=== PATIENT | male | born 1970 | race Caucasian/White ===

== ENCOUNTER → 2017-06-09 | Outpatient (CLI) | payer OTHER ==
[~2017-06-09] VITALS: Ht 182.9 cm; Wt 118.9 kg
[~2017-06-09] MED LIST: ACETAMINOPHEN325 M1 PO; ADULT ONE DAI200 MCG PO; CARISOPRODOL 3350 MG PO; COLACE100 MG PO; GLUCOPHAGE XR500 MG; GLUCOPHAGE500 MG PO; HYDROCODONE-AP1 EAC6 PO; IBUPROFEN200 M1 PO; LIDODERM 5%1 PATC1 TOP; LIPITOR20 MG; LIPITOR80 MG PO; LISINOPRIL2.5 MG; LISINOPRIL20 MG PO; LYRICA 75 MG CA75 MG PO; LYRICA150 MG PO; NEURONTIN 300300 M1 PO; OXYCODON-ACETA1 EAC1 PO; OXYCODONE-ACET1 EAC2 PO; OXYCODONE-ACET1 EACH PO; PERCOCET 7.5-31 EACH PO; PREDNISONE 20 M20 M1 PO; TIZANIDINE HCL 22 M1 PO; ULTRAM 50MG TAB50 MG PO
--- NOTE | ~2017-06-09 | HPC ---
[facility] [address] [place] [address] PAIN MANAGEMENT CONSULTATION Name: BUZZ BHATIA Room #: REG CLFran Padilla.#: [id number] Admission: 06/09/17 Attend Phys: Bert Sams MD Discharge: Date of : 70 Report #: [id number] THIS REPORT FOR: //name// CC: Nadine Sams DATE OF SERVICE: 06/09/2017 DATE OF SERVICE: 06/09/2017 CHIEF COMPLAINT: Bilateral shoulder pain, status post left shoulder surgery on 05/16/2017. HISTORY OF PRESENT ILLNESS: The patient is here today complaining of pain in his right shoulder. He has just recently had surgery on his left shoulder and is having postoperative pain there as well. He had medication provided for him for postoperative pain and he took 2-3 tablets a day and they are now gone. He is here today at his own request, having been a previous Pain Clinic patient in the past. He has pain in his right shoulder and thought that we might be able to help by providing him with an injection. I have also discussed with him following up with his orthopedic surgeon who will be seeing soon for followup visit for his left shoulder. He describes two pains. The first is right shoulder pain. The pain is associated with certain activities, which were identified in physical exam. He has localized pain posterior and anterior. Pain has been chronic. It has worsened over the last 6-7 years. He says he has had an MRI there, which shows some tendinopathy, I do not have those results to view. His left shoulder is painful. He had shoulder surgery apparently to treat a ruptures tendon. Recovery has gone well, he has been cautious with some passive range of motion exercises and wearing a bolster pillow for another week or two. Pain report today as a 6/10 in both locations. 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 MEDICATIONS: He is on gabapentin chronically 300 mg t.i.d., lisinopril 20 mg daily, Glucophage 500 mg twice a day and Lipitor. ALLERGIES: PENICILLIN. PHYSICAL EXAMINATION: Pleasant gentleman, blood pressure 134/95, heart rate 89, respirations 16. BMI is 35.6. He wears a left bolster pillow. I did not reexamine aggressively the left shoulder. He has been doing passive range of motion. Examination of the right shoulder reveals pain with abduction. He has good internal and external rotation. He has quite a bit of pain with medial [facility] [address] [place] [address] PAIN MANAGEMENT CONSULTATION Name: BUZZ BHATIA Room #: REG CLFran Causey.#: [id number] Admission: 06/09/17 Attend Phys: Bert Sams MD Discharge: Date of : 70 Report #: [id number] active motion. Otherwise, good strength throughout the shoulder girdle. IMPRESSION: 1. Bilateral shoulder arthropathy. Status post surgical repair of tendon, left shoulder. He is 6 weeks postop. 2. Right shoulder arthropathy with local pain without radiation. RECOMMENDATIONS: Cortisone injection may be of benefit. He can have it here or his orthopedic surgeon's office. Risks and benefits discussed. We discussed the new approaches with regenerative medicines, but these are expensive and out of pocket. He is not interested. He would like for me to provide his medication for him at this point given concerns about opioids. I have agreed to do so. I will provide him with 40 additional pills, 1-2 tablets b.i.d. for the next 10 days. Plan is to get him through surgery without chronic use of opioids. He has not been on opioids long-term in the past. Followup visit is planned in the pain clinic in a few weeks. May consider an injection of the right shoulder here if he does not get it in his orthopedic surgeon's office. By: [id number] Bert Sams MD /nt
[2017-06-09 10:16] VITALS: BP 134/95
== END | disposition home or self-care (01) ==
LOC: PAIN 09:59
DX: M12.811 Other specific arthropathies, not elsewhere classified, right shoulder (principal); M12.812 Other specific arthropathies, not elsewhere classified, left shoulder; G89.29 Other chronic pain; Z98.890 Other specified postprocedural states; Z88.0 Allergy status to penicillin; Z79.899 Other long term (current) drug therapy

== ENCOUNTER → 2018-03-12 | Outpatient (CLI) | payer OTHER ==
[~2018-03-12] VITALS: Ht 182.9 cm; Wt 116.5 kg
[~2018-03-12] MED LIST changes: +HUMIRA PSO40 MG/0.8 SUBQ
--- NOTE | ~2018-03-12 | HPC ---
[facility] [address] [place] [address] PAIN MANAGEMENT CONSULTATION Name: BUZZ BHATIA [facility] [id number] Admission: 03/12/18 Attend Phys: Bert Sams MD Discharge: Date of : 70 Report #: [id number] THIS REPORT FOR: //name// CC: Nadine Sams DATE OF SERVICE: 03/12/2018 Followup visit for osteoarthritis, right shoulder. The patient returns to pain clinic today and would like an injection. Unfortunately, we cannot do the injection today due to insurance requirements, he will need to have a preauthorization. It should be noted that the last injection provided on the left worked quite well. He is grateful for the excellent relief that provided him, had several weeks to several months of improvement. He describes his pain as a 6 with activity, 3 with rest. He uses good body mechanics to try and overcome the pain. He is on medication for pain including hydrocodone 10/325 taken as needed up to 3-4 times a day and is on gabapentin 300 mg 1 tablet in the morning and noon and 2 tablets in the evening. This combination seems to have been helpful. We discussed the fact that gabapentin is more for neuropathic pain than it is for arthropathy, but it does provide relief for his current condition. His only new medication at this time is Humira, which he started for psoriasis. PHYSICAL EXAMINATION: He has blood pressure 123/82, heart rate 73, respirations 16. Examination of the shoulder reveals significant pain with abduction, internal and external rotation of the right shoulder. Localized tenderness is noted there posteriorly and anteriorly. IMPRESSION: Osteoarthritis, right shoulder. RECOMMENDATION: Shoulder injection. We will perform this injection once we have received preauthorization. Plan to have him back in the pain clinic some time next week. By: [id number] Bert Sams MD /nt
[2018-03-12 11:34] VITALS: BP 123/82
== END ==
LOC: PAIN 06:12
DX: M19.011 Primary osteoarthritis, right shoulder (principal)

== ENCOUNTER → 2018-03-19 | Outpatient (CLI) | payer OTHER ==
[~2018-03-19] VITALS: Ht 182.9 cm; Wt 119.4 kg
--- NOTE | ~2018-03-19 | HPC ---
[facility] [place] [address] PAIN MANAGEMENT CONSULTATION Name: BUZZ BHATIA Room #: REG CL Padilla.#: [id number] Admission: 03/19/18 Attend Phys: Bert Sams MD Discharge: Date of : 70 Report #: [id number] THIS REPORT FOR: //name// CC: Nadine Sams DATE OF SERVICE: 03/19/2018 Followup visit for osteoarthritis, right shoulder. The patient is here today for shoulder injection. He was seen on 03/12/2018. We were unable to perform the injection on that day because of insurance preauthorization requirements. He was discharged. We have received that preauthorization. We will proceed today with the injection described on that visit of 03/12/2018. There have been no significant changes. IMPRESSION: Osteoarthritis, right shoulder. PROCEDURE: Shoulder injection with triamcinolone and bupivacaine. DESCRIPTION OF PROCEDURE: With the patient in seated position, skin was prepped with ChloraPrep. Skin was anesthetized with 1% lidocaine and a 27-gauge needle to identify entry. A posterior approach was used to enter the joint space below the spine of the scapula. In the subacromial joint space, I injected a total of 4 mL of 0.5% bupivacaine mixed with 40 mg of triamcinolone. He tolerated the procedure well, was discharged shortly thereafter. No medications ordered today. By: [id number] MD morales Montgomery
[2018-03-19 14:00] VITALS: BP 130/81
== END | disposition home or self-care (01) ==
LOC: PAIN 06:18
DX: M19.011 Primary osteoarthritis, right shoulder (principal); Z88.0 Allergy status to penicillin; Z79.899 Other long term (current) drug therapy

== ENCOUNTER → 2018-07-09 | Outpatient (CLI) | payer OTHER ==
[~2018-07-09] VITALS: Ht 182.9 cm; Wt 119.8 kg
--- NOTE | ~2018-07-09 | HPC ---
[facility] [place] [address] PAIN MANAGEMENT CONSULTATION Name: BUZZ BHATIA Room #: REG [facility] Digna.#: [id number] Admission: 07/09/18 Attend Phys: Bert Sams MD Discharge: Date of : 70 Report #: [id number] THIS REPORT FOR: //name// CC: Nadine De Santiago DO Bert Sams DATE OF SERVICE: 07/09/2018 Followup visit for osteoarthritis. The patient was last seen on 03/19/2018 when he received shoulder injection with 40 mg of triamcinolone. He had nearly 3 months of good pain relief. Pain has been returning over the last couple of weeks. Pain is all on the right shoulder. It is worse with abduction and internal and external rotation. He has no crepitus. PHYSICAL EXAMINATION: Demonstrates mild tenderness of the shoulder joint with good range of motion. I could not palpate a significant crepitus. There is no swelling, no effusion. VITAL SIGNS: Blood pressure 123/84, heart rate 75, respirations 16. He has some plaquing from his psoriasis noted on his elbows. All medications were reviewed and reconciled from the electronic medical record. He is currently on , metformin, lisinopril, gabapentin, Humira. IMPRESSION: Osteoarthritis, right shoulder. PROCEDURE: Right shoulder injection triamcinolone and bupivacaine. Skin was prepped with ChloraPrep. A 27-gauge needle was used to anesthetize the skin. A 25-gauge needle was advanced in the shoulder joint. After negative aspiration, I gently injected a total of 4 mL of 0.5% bupivacaine mixed with 40 mg of triamcinolone. He tolerated the procedure well and was observed for 40 minutes and discharged. By: [id number] 1730 Bert Sams MD /nt
[2018-07-09 09:01] VITALS: BP 123/84
== END | disposition home or self-care (01) ==
LOC: PAIN 07:08
DX: M19.011 Primary osteoarthritis, right shoulder (principal); Z79.84 Long term (current) use of oral hypoglycemic drugs; Z79.899 Other long term (current) drug therapy; Z88.0 Allergy status to penicillin